=== PATIENT | male | born 1970 | race Caucasian/White ===

== ENCOUNTER → 2018-03-17 | Outpatient (CLI) | payer OTHER | LOC: GMAM 15:37 | PROVIDERS: ATTEND Family Medicine | DX: Z12.5 Encounter for screening for malignant neoplasm of prostate (principal) ==

== ENCOUNTER → 2018-05-13 | Outpatient (CLI) | payer OTHER ==
--- NOTE | 2018-05-13 12:47 | US ---
US THYROID CLINICAL STATEMENT: NODULE. . No palpable mass. No previous thyroid surgery or previous/current therapy. COMPARISON: None TECHNIQUE: Transcutaneous scanning, grayscale and Doppler modes. FINDINGS: Size right thyroid lobe: 6.5 x 3.2 x 3.1 cm Size left thyroid lobe: 6.4 x 2.8 x 2.7 cm Size isthmus: 1.1 cm Estimated total number of nodules greater than or equal to 1 cm: 2.. Heterogeneous echoes throughout. Nodule 1: Size: 0.8 x 0.8 x 0.7 cm Location: Right Lower Composition: solid or almost completely solid: 2 points Echogenicity: hyperechoic: 1 point Shape: wider than tall: 0 points Margins: smooth: 0 points Echogenic foci: none: 0 points ACR Total Points: 3; ACR TI-RADS risk category: TR3 - mildly suspicious nodule. Nodule 2: Size: 1.0 x 0.9 x 0.9 cm Location: Left Mid Composition: solid or almost completely solid: 2 points Echogenicity: hyperechoic: 1 point Shape: taller than wide: 3 points Margins: smooth: 0 points Echogenic foci: none: 0 points ACR Total Points: 6; ACR TI-RADS risk category: TR4 - moderately suspicious nodule. Nodule 3: Size: 2.4 x 2.4 x 1.9 cm Location: Left Lower Composition: solid or almost completely solid: 2 points Echogenicity: hypoechoic: 2 points Shape: wider than tall: 0 points Margins: smooth: 0 points Echogenic foci: none: 0 points ACR Total Points: 4; ACR TI-RADS risk category: TR4 - moderately suspicious nodule. Nodule 4: Size: 1.1 x 0.6 cm Location: Left Mid Composition: solid or almost completely solid: 2 points Echogenicity: hypoechoic: 2 points Shape: wider than tall: 0 points Margins: smooth: 0 points Echogenic foci: none: 0 points ACR Total Points: 4; ACR TI-RADS risk category: TR4 - moderately suspicious nodule. The soft tissue around the thyroid gland shows no dominant solid mass or distinct cyst. No parenchymal edema or large calcifications. No overlying skin changes. Normal vascularity. IMPRESSION: 1. Nodule 1: ACR TI-RADS 2017 Category TR4. Recommend: No further follow-up.. Recommendations based upon [facility] Best [facility] recommendations and ACR TI-RADS 2017 guidelines. Please see below*. 2. Nodule 2: ACR TI-RADS 2017 Category TR4. Recommend: Follow-up ultrasound in 1 year. 3. Nodule 3: ACR TI-RADS 2017 Category TR4. Recommend: Ultrasound-guided fine needle aspiration 4. Nodule 4: ACR TI-RADS 2017 Category TR4. Recommend: Follow-up ultrasound in 1 year. Overall thyromegaly. Not hypervascular. Soft tissue around the thyroid gland is unremarkable. *ACR TI-RADS 2017 Recommendations: TR1: No FNA or follow up TR2: No FNA or follow up TR3: FNA if >/= 2.5 cm, follow up if 1.5 - 2.4 cm in 1, 3, and 5 years TR4: FNA if >/= 1.5 cm, follow up if 1.0 - 1.4 cm in 1, 2, 3, and 5 years TR5: FNA if >/= 1.0 cm, follow up if 0.5 - 0.9 cm every year for 5 years ACR TI-RADS recommends that no more than two nodules with the highest ACR TI-RADS total point should be biopsied and no more than four nodules should be followed. These recommendations do not apply to patients with increased risk for thyroid cancer or patients with symptomatic thyroid disease. Electronically signed by: Alex Barkley MD 05/13/2018 12:44 PM [facility]
== END ==
LOC: US 09:59
PROVIDERS: ATTEND Family Medicine
DX: E04.1 Nontoxic single thyroid nodule (principal)

== ENCOUNTER → 2018-12-15 | Outpatient (CLI) | payer OTHER | LOC: GMAM 10:38 | PROVIDERS: ATTEND Family Medicine | DX: E04.1 Nontoxic single thyroid nodule (principal); I10 Essential (primary) hypertension ==

== ENCOUNTER → 2019-11-25 | Outpatient (CLI) | payer OTHER | LOC: GMAM 16:56 | PROVIDERS: ATTEND Family Medicine | DX: R60.0 Localized edema (principal) ==

== ENCOUNTER → 2019-12-22 | Outpatient (CLI) | payer OTHER | LOC: GMAM 10:43 | PROVIDERS: ATTEND Family Medicine | DX: E04.1 Nontoxic single thyroid nodule (principal); Z12.5 Encounter for screening for malignant neoplasm of prostate ==

== ENCOUNTER 2020-02-21 22:49 | Emergency (ER) | payer OTHER ==
[2020-02-21] MEDS ORDERED: KETOROLAC TROMETHAMINE INJ 30 MG/ML VIAL IM ONE (22:57)
--- NOTE | 2020-02-21 23:00 | ED.PDOC ---
History of Present Illness - General Chief Complaint: Upper Extremity Injury Stated Complaint: right shoulder pain c finger numbness Time Seen by Provider: 02/21/20 22:57 Source: patient, RN notes reviewed Additional Information: Patient went to [facility] hypertension presented to the ER with a 3-day history of right scapular right shoulder pain, no nausea, no fever no chills no shortness of breath no diaphoresis no sweating, patient said that the pain is worse when he moves could not lay in bed today because of pain, took some Advil p.m. without any improvement of symptoms. No recent trauma no fever no chills patient does not be in any distress - History of Present Illness Timing/Duration: other - 3 days Improving Factors: nothing Worsening Factors: nothing Associated Symptoms: denies symptoms Allergies/Adverse Reactions: Allergies NO KNOWN ALLERGY Allergy (Verified 02/21/20 23:01) Home Medications: Ambulatory Orders Acetaminophen W/ Codeine [Tylenol W/ CODEINE #3] 1 ea PO Q6HRS #20 ea 02/21/20 Amlodipine Besylate-Benazepril [Amlodipine Besylate/Benaz 5-20 mg] 02/21/20 Atorvastatin Calcium [Lipitor] 02/21/20 Cyclobenzaprine HCl [Flexeril] 0 mg PO Q6HRS #20 tab 02/21/20 Methylprednisolone [Medrol Dose [place]] 4 mg PO DAILY 6 Days #21 tab 02/21/20 Metoprolol Succinate [Metoprolol Succinate ER] 02/21/20 Review of Systems - Review of Systems Constitutional: States: no symptoms reported EENTM: States: no symptoms reported Respiratory: States: no symptoms reported Cardiology: States: no symptoms reported Gastrointestinal/Abdominal: States: no symptoms reported Genitourinary: States: no symptoms reported Musculoskeletal: States: no symptoms reported Skin: States: no symptoms reported Neurological: States: no symptoms reported Endocrine: States: no symptoms reported Hematologic/Lymphatic: States: no symptoms reported Physical Exam - Physical Exam General Appearance: Well Developed, Well Groomed, Well Hydrated Eye Exam: bilateral normal Ears, Nose, Throat: hearing grossly normal, normal ENT inspection, normal pharynx Neck: non-tender, full range of motion, supple, normal inspection Respiratory: chest non-tender, lungs clear, normal breath sounds, no respiratory distress, no accessory muscle use Cardiovascular/Chest: normal peripheral pulses, regular rate, rhythm, no edema, no gallop, no JVD, no murmur Peripheral Pulses: radial,right: 2+, radial,left: 2+ Gastrointestinal/Abdominal: normal bowel sounds, non tender, soft, no organomegaly, no pulsatile mass Back Exam: other - There is some right paraspinal pain, and some pain in the scapular area, pain with movement of the shoulder without any redness swelling or Neurologic: train starter II-XII nml as tested, alert, normal mood/affect, oriented x 3 Skin Exam: normal color Lymphatic: no adenopathy Progress - Progress Progress: Patient EKG did not show any acute ischemic changes heart rate of 71 without any depressions or elevations x-ray does show some calcification but no fracture no dislocation no cortical fracture, this patient does have this point tenderness in the on the right upper paraspinal area right scapular area extending into the shoulder but not the neck, patient denies any chest pain shortness of breath patient did receive a dose of Toradol, and will be discharged home with Flexeril Tylenol 3 and steroids, I recommended also using ice packs and warm compresses and alternating between those 2 cm each. return to the ER if there is any fever chills chest pain shortness of breath nausea vomiting dizziness sensation of fainting excessive sweating crushing chest pain evaluation to the back sensation in the chest variation to left arm right arm both arms neck back or jaw or any other complaint I suspect thatht this Patient is suffering from a muscle spasms 02/21/20 23:11 Departure - Departure Clinical Impression: Muscle spasm Disposition: Discharge to Home or Self Care Condition: Fair Departure Forms: ED Discharge - Pt. Copy, Patient Portal Self Enrollment, Work Release Form Instructions: DI for Arm Pain, Muscle Spasms (DC) Diet: resume usual diet Referrals: Sudheer Chairez MD [Primary Care Provider] - 1-2 Weeks Prescriptions: Cyclobenzaprine HCl [Flexeril] 0 mg PO Q6HRS #20 tab Acetaminophen W/ Codeine [Tylenol W/ CODEINE #3] 1 ea PO Q6HRS #20 ea Methylprednisolone [Medrol Dose [place]] 4 mg PO DAILY 6 Days #21 tab Home Medications: Ambulatory Orders Acetaminophen W/ Codeine [Tylenol W/ CODEINE #3] 1 ea PO Q6HRS #20 ea 12/14/20 Amlodipine Besylate-Benazepril [Amlodipine Besylate/Benaz 5-20 mg] 02/21/20 Atorvastatin Calcium [Lipitor] 02/21/20 Cyclobenzaprine HCl [Flexeril] 0 mg PO Q6HRS #20 tab 02/21/20 Methylprednisolone [Medrol Dose [place]] 4 mg PO DAILY 6 Days #21 tab 02/21/20 Metoprolol Succinate [Metoprolol Succinate ER] 02/21/20
[2020-02-21 23:01] VITALS: TEMP 97.6
--- NOTE | 2020-02-21 23:21 | RAD ---
EXAM: XR Right Shoulder Complete, 2 or More Views CLINICAL HISTORY: The patient is 49 years old and is Male; shoulder pain TECHNIQUE: Two or more views of the right shoulder. COMPARISON: No relevant prior studies available. FINDINGS: Bones/joints: Degenerative changes of the right acromioclavicular joint. No acute fracture. No dislocation. Soft tissues: Unremarkable. IMPRESSION: No acute findings in the right shoulder. Electronically signed by: Duong Osorio MD 02/21/2020 11:20 PM [facility]
[2020-02-21] MEDS ORDERED: CYCLOBENZAPRINE HCL 10 MG TAB ONE (23:22)
[2020-02-21] MEDS ORDERED: CYCLOBENZAPRINE HCL 10 MG TAB PO ONE (23:22)
[2020-02-21 23:26] VITALS: BP 150/94; O2SAT 99
== END 2020-02-21 23:26 | disposition home or self-care (01) ==
LOC: ER 22:49
DX: M62.838 Other muscle spasm (principal); M25.511 Pain in right shoulder; I10 Essential (primary) hypertension; E78.5 Hyperlipidemia, unspecified; Z79.899 Other long term (current) drug therapy
CPT/HCPCS: 73030; 93005; J1885